=== PATIENT | male | born 1965 | race Caucasian/White ===

== ENCOUNTER 2018-12-13 12:32 | Emergency (ER) | payer OTHER, MEDICAID ==
[~2018-12-13] VITALS: Ht 165.1 cm; Wt 54.0 kg
[2018-12-13 12:44] VITALS: BP_SYST 147
[2018-12-13] MEDS ORDERED: IBUPROFEN 600 MG TABLET PO ONE (13:00)
[2018-12-13] MEDS ORDERED: CEPHALEXIN 500 MG CAPSULE PO ONE (13:00)
[2018-12-13 13:55] VITALS: BP_SYST 147
== END 2018-12-13 13:50 | disposition home or self-care (01) ==
LOC: SED 12:32
DX: S00.81XA Abrasion of other part of head, initial encounter (principal); S60.512A Abrasion of left hand, initial encounter; S60.511A Abrasion of right hand, initial encounter; S90.812A Abrasion, left foot, initial encounter; R03.0 Elevated blood-pressure reading, without diagnosis of hypertension; X58.XXXA Exposure to other specified factors, initial encounter; Y93.89 Activity, other specified; Y92.89 Other specified places as the place of occurrence of the external cause; Y99.8 Other external cause status
CPT/HCPCS: 99282